=== PATIENT | female | born 2005 | race Caucasian/White ===

== ENCOUNTER 2024-09-19 21:44 | Emergency (ER) | payer MEDICAID ==
[~2024-09-19] VITALS: Ht 154.9 cm; Wt 65.0 kg
[2024-09-19 21:47] VITALS: O2SAT 100
[2024-09-19 21:50] VITALS: BP 116/74; PULSE 73; RESP 18; TEMP 36.7; O2SAT 100
[2024-09-19] MEDS ORDERED: VISCOUS LIDOCAINE 2% 15 ML UDC MM STA (22:25)
[2024-09-19] MEDS ORDERED: MAGNESIUM/ALUMINUM HYDROXIDE/SIMETHICONE 30ML UDC PO ONE (22:30)
[2024-09-19] MEDS ORDERED: FAMOTIDINE 20MG TABLET PO ONE (22:30)
== END 2024-09-20 00:30 | disposition left against medical advice (07) ==
LOC: ER 21:44
DX: R07.81 Pleurodynia (principal); M54.50 Low back pain, unspecified; R10.13 Epigastric pain
CPT/HCPCS: 71045; 93005; 99283